=== PATIENT | female | born 1970 | race Caucasian/White ===

== ENCOUNTER 2016-06-16 16:16 | Emergency (ER) | payer OTHER | END 2016-06-16 17:41 | disposition home or self-care (01) | LOC: ER 16:16 | DX: S93.401A Sprain of unspecified ligament of right ankle, initial encounter (principal); S93.601A Unspecified sprain of right foot, initial encounter; X50.1XXA Overexertion from prolonged static or awkward postures, initial encounter; Y93.01 Activity, walking, marching and hiking; Y92.238 Other place in hospital as the place of occurrence of the external cause; Y99.0 Civilian activity done for income or pay; E11.9 Type 2 diabetes mellitus without complications; I10 Essential (primary) hypertension; Z79.899 Other long term (current) drug therapy; Z90.710 Acquired absence of both cervix and uterus | CPT/HCPCS: 73610; 73630; 99070; 99283; 99283-25 ==

== ENCOUNTER 2016-08-14 20:48 | Emergency (ER) | payer BC, OTHER ==
[2016-08-14 21:35] LABS: URINE BILIRUBIN NEGATIVE (NEGATIVE); URINE BLOOD NEGATIVE (NEGATIVE); URINE KETONE NEGATIVE (NEGATIVE); URINE LEUKOCYTE ESTERASE NEGATIVE (NEGATIVE); URINE NITRATE NEGATIVE (NEGATIVE); URINE PROTEIN NEGATIVE (NEGATIVE); UROBILINOGEN NORMAL mg/dL (<1.0)
[2016-08-14 21:36] LABS: URINE GLUCOSE (UA) 1000 mg/dL (NORMAL)
[2016-08-14 21:40] LABS: ALBUMIN 4.6 gm/dL (3.4-5.0); ALKALINE PHOSPHATASE 160 U/L (50-136); ALT/SGPT 18 U/L (3.5-33.9); AST/SGOT 15 U/L (7.04-26.96); BILIRUBIN,TOTAL 0.26 mg/dL (0.0-1.0); BLOOD UREA NITROGEN 15 mg/dL (7-18); CALCIUM 10.2 mg/dL (8.7-10.7); CARBON DIOXIDE 23 mmol/L (21-32); CREATININE 0.8 mg/dL (0.6-1.3); POTASSIUM 4.2 mmol/L (3.5-5.1); SODIUM 135 mmol/L (136-145); TOTAL PROTEIN 7.5 gm/dL (6.4-8.2)
[2016-08-14 21:41] LABS: HEMATOCRIT 48.5 % (34-45); LYMPH # 3.9 10_X3_UL (1.2-3.7); MEAN CORPUSCULAR HEMOGLOBIN 30.3 pg (27.0-33.0); MEAN CORPUSCULAR HGB CONC 35.1 g/dl (32.0-36.0); MEAN CORPUSCULAR VOLUME 86.5 fl (79-95); MIXED # 0.9 10_X3_UL (0-12); PLATELET COUNT 194 x10_3/UL (182-369); RED BLOOD COUNT 5.61 x10_6/ul (3.9-5.2); WHITE BLOOD COUNT 12.7 x10_3/ml (4.0-10.0)
[2016-08-14 21:42] LABS: GRAN # 7.9 10_X3_UL (1.6-6.1); GRAN % 62.3 % (34.0-71.1); LYMPH % 30.9 % (19.3-51.7); MIXED % 6.8 % (1.7-9.3)
[2016-08-14 22:28] LABS: GLUCOSE,RANDOM 538 mg/dL (70-99)
== END 2016-08-14 23:51 | disposition home or self-care (01) ==
LOC: ER 20:48
PROVIDERS: Emergency Medicine
DX: E11.65 Type 2 diabetes mellitus with hyperglycemia (principal); E86.0 Dehydration; R42 Dizziness and giddiness; J44.9 Chronic obstructive pulmonary disease, unspecified; I10 Essential (primary) hypertension; E03.9 Hypothyroidism, unspecified; Z90.710 Acquired absence of both cervix and uterus; F17.210 Nicotine dependence, cigarettes, uncomplicated; Z79.899 Other long term (current) drug therapy; Z79.84 Long term (current) use of oral hypoglycemic drugs
CPT/HCPCS: 36415; 80053; 81003; 82009; 82962; 85025; 96360; 96361; 99070; 99284-25